=== PATIENT | female | born 1980 | race Caucasian/White ===

== ENCOUNTER → 2020-09-27 | Outpatient (CLI) | payer OTHER ==
[~2020-09-27] MED LIST: ADVAIR 100-501 EACH; BIOTIN5000 MCG PO; CALTRATE-600 W1 EACH PO; GRAPEFRUIT EXTRACT PO; LEVO-T100 MCG PO; MAGNESIUM400 M1 PO; OXAYDO5 MG PO; PROAIR HFA8.5 GM INH; PROTONIX 20 MG20 MG PO; PROZAC20 M1 PO; SINGULAIR 10 MG10 MG PO; TOPAMAX100 MG PO; TRANSDERM-SCOP1 EACH TD; VITAMIN B-2100 MG PO
== END | disposition home or self-care (01) ==
LOC: M.LAB 11:28
PROVIDERS: ATTEND Surgery
DX: K82.8 Other specified diseases of gallbladder (principal)

== ENCOUNTER → 2020-09-28 | Day surgery (SDC) | payer OTHER ==
--- NOTE | ~2020-09-28 | OP ---
[address] [address] OPERATIVE REPORT Name: CORRIE RAHMAN Room: [facility]#: [id number] Admission: 09/28/20 Attend Phys: Parmjit Tolbert Discharge: Date of : 78 Report #: [id number] THIS REPORT FOR: cc: Martinez Melgoza Mohammad K. DO Gazzetta, Joshua D. DO ~ DATE OF SURGERY: 09/28/2020 PREOPERATIVE DIAGNOSIS: Biliary dyskinesia. POSTOPERATIVE DIAGNOSIS: Biliary dyskinesia. PRIMARY SURGEON: Garfield Velasco DO. CO-SURGEON: Hung Marshall DO, PGY4 [employer] SUPERVISOR: Conner Hernandez DO, PGY-1. OPERATION PERFORMED: Laparoscopic cholecystectomy. ANESTHESIOLOGIST: Combined general regional and local. ESTIMATED BLOOD LOSS: 10 mL SPECIMEN: Gallbladder. COMPLICATIONS: None. DISPOSITION: PACU to home. FINDINGS: Dilated distended gallbladder with cholesterolosis. INDICATIONS FOR PROCEDURE: The patient is a pleasant 40-year-old female who presented to the clinic for evaluation of epigastric right upper quadrant abdominal pain. Pain is centered around p.o. intake, postprandial abdominal pain with nausea and vomiting, diarrhea, centered more around fried and fatty foods. The patient had a workup and a HIDA scan which showed a low gallbladder ejection fraction. The patient was recommended for laparoscopic cholecystectomy. Full discussion of procedure, alternatives, risks, and possible complications were discussed including but not limited to bleeding, infection, postoperative pain, scarring, hernia, injury to other underlying abdominal organs mainly bowel, stomach, liver, bile ducts if bile duct injury were to recur transferred to a Tertiary Care Facility for evaluation by hepatobiliary specialist, conversion to open procedure, bile leak, biloma and anesthesia risks. The patient voiced understanding of these risks and agreed [place] [address] OPERATIVE REPORT Name: CORRIE RAHMAN Room: [facility]#: [id number] Admission: 09/28/20 Attend Phys: Parmjit Tolbert Discharge: Date of : 78 Report #: [id number] OPERATIVE TECHNIQUE: The patient was again seen and examined in the preoperative holding area. Fully informed written consent was obtained. Preoperative antibiotics were given, 2 grams Ancef. The patient was transported to the operating room suite and placed on the operating table in a comfortable supine position. At this time, anesthesia induced general anesthesia via endotracheal intubation. This was successful. Next Anesthesia placed bilateral TAP blocks. Arms were outstretched on arm boards. Safety strap was placed across the patient's lap. Grounding pad was placed to the right lateral thigh. All extremities and joints were padded and protected. The patient was prepped and draped using standard sterile fashion. A timeout was performed prior to the onset of the procedure. We began by making a vertical incision inferior to the umbilicus where the previous laparoscopic keloid scar was excised using open Vashti technique, we then dissected down to the subcutaneous tissues, reached the level of the fascia. The fascia was grasped with bilateral Kochers, elevated and transected using electrocautery. Hemostat was used to yusuf the peritoneum. Two 0 Vicryl stay sutures were placed in the fascial edges. Finger sweep was performed to ensure entry into the abdomen and there were no adhesions. A 12 mm Vashti trocar was placed into the abdomen. The abdomen was insufflated first using low flow, then high flow. The patient was placed in reverse Trendelenburg with left side down. At this time, an additional 5 mm trocar was placed in the epigastric region and two 5 mm trocars were placed in the right upper quadrant. The distended and dilated gallbladder was grasped using a locking grasper and retracted anterior and cephalad towards the abdominal wall. Yasmin's pouch was then grasped with a blunt grasper as well. The peritoneum was scored with electrocautery to the gallbladder and this was carried out laterally to the lateral liver edge. This was then also performed on the medial aspect high on the gallbladder to ensure safety and was ensured. The peritoneum and scar tissue was noted around this area was all taken down using electrocautery, blunt dissection with [place] grasper. The critical view was obtained noting only two visible structures coursing into the gallbladder with exposed hepatic plate, which could be seen from the lateral and medial aspect. A critical view of safety was obtained. Intraoperative pictures were taken. Next, a Weck clip cabana attendant was used to clip the cystic duct twice proximally and once distally near the gallbladder. The cystic artery was clipped once distally and once proximally using the Weck clips as well. These were then transected using laparoscopic scissors. The gallbladder was then removed from the fossa using electrocautery. It was placed into an EndoCatch bag through the umbilical trocar site. The abdomen was evaluated. The right upper quadrant was copiously suctioned and irrigated. Hemostasis had been achieved. There were no bile leaks or spillage. The patient was placed back supine. The abdomen was then desufflated under direct visualization. The 5 mm trocars were removed as was the camera. Once the Vashti trocar was removed the gallbladder and the EndoCatch bag was extracted through the umbilical fascial defect. At this time, the fascia was closed using an interrupted 0 Vicryl in a [address] [address] OPERATIVE REPORT Name: CORRIE RAHMAN Room: [facility].#: [id number] Admission: 09/28/20 Attend Phys: Parmjit Tolbert Discharge: Date of : 78 Report #: [id number] fashion. Finger sweep was performed prior to tying the suture to ensure there was nothing trapped inside of the fascial defect. A 0.5 mL of Kenalog solution was injected into the dermis to prevent further keloid formation at the incisional scar site of the new umbilical incision. The remaining 5 mm trocars were closed using an interrupted subcuticular 4-0 Monocryl and 20 mL of 0.5% Marcaine were injected for local anesthetic. Abdomen was cleansed with wet and dry lap. Dermabond skin glue was applied for dressings. The patient was extubated in the OR and transferred to PACU in stable condition after brief recovery from anesthesia.. PLAN: Discharged home. Follow up in the office with Dr. Velasco in 1 week. By: [id number] Velasco DO /nt
--- NOTE | 2020-10-01 15:08 | PATH ---
[facility] [address] [place] [address] PATHOLOGY RPT PROCEDURE Name: CORRIE RAHMAN Room: [facility]#: [id number] Admission: 09/28/20 Date of : 78 Discharge: Report #: [id number] Path Case #: [id number] [facility] Accession Number: [id number] . 01 Material submitted: . gallbladder - GALLBLADDER WITH CONTENTS . 01 Clinical history: . LAPAROSCOPIC CHOLECYSTECTOMY BILIARY DYSKINESIA . 02 Diagnosis: Gallbladder with contents: - Chronic cholecystitis with cholesterolosis. (OSITO:[facility]; 10/01/2020) [facility] 10/01/2020 1143 Local . 02 Electronically signed: . Santana Alvarez MD, Pathologist NPI- [id number] . 01 Gross description: . Fixative: Formalin Labeled: Gallbladder with contents Specimen received: Intact gallbladder Dimensions: 7.1 x 3.6 x 3.8 cm Serosa: Blue-gaona Lymph node: None identified Mucosa: Velvety, bile-stained Average wall thickness: 0.1 cm Calculi: None present Abnormalities: None identified . A1- Tank Carpenter body, fundus, and the cystic duct margin. ([facility]; 09/29/2020) NRI/NRI 09/29/2020 1512 Local . 02 Pathologist provided ICD-10: K81.1, K82.4 . 02 CPT . 283623 Specimen Comment: A courtesy copy of this report has been sent to [phone], [phone] Specimen Comment: [phone] Specimen Comment: Report sent to / DR SOLOMON Performed at: [address] [address] PATHOLOGY RPT PROCEDURE Name: JOSIAHCORRIE TIRADOEE Room: [facility]#: [id number] Admission: 09/28/20 Date of : 78 Discharge: Report #: [id number] Path Case #: [id number] [address] [id number] MD Minesh Guillory MD Phone: [phone] Performed at: [address] [id number] MD Santana Alvarez MD Phone: [phone]
== END | disposition home or self-care (01) ==
LOC: M.SUR
PROVIDERS: ATTEND Surgery
DX: K81.1 Chronic cholecystitis (principal); Z79.899 Other long term (current) drug therapy; Z20.822 Contact with and (suspected) exposure to COVID-19